=== PATIENT | female | born 1950 | race Caucasian/White ===

== ENCOUNTER 2017-11-28 22:56 | Emergency (ER) | payer MEDICARE, OTHER ==
[2017-11-28] MEDS ORDERED: Bupivacaine 0.5% 10 ML VIAL ONE (23:07)
[2017-11-28] MEDS ORDERED: Bacitracin Zinc 1 Packet ONE (23:32)
== END 2017-11-28 23:42 | disposition home or self-care (01) ==
LOC: SCSER 22:56
DX: S61.012A Laceration without foreign body of left thumb without damage to nail, initial encounter (principal); W25.XXXA Contact with sharp glass, initial encounter
CPT/HCPCS: 12001; J3490